=== PATIENT | female | born 1935 | race Caucasian/White ===

== ENCOUNTER → 2023-06-30 07:35 | Outpatient (REF) | payer MEDICARE, OTHER, SELFPAY ==
[2023-06-30 09:06] LABS: ALT (SGPT) 19 U/L (0-35); AST (SGOT) 28 U/L (14-36); Albumin 4.1 g/dl (3.5-5.0); Alkaline Phosphatase 148 U/L (38-126); Blood Urea Nitrogen 15 mg/dl (7-17); Calcium 9.9 mg/dl (8.4-10.2); Carbon Dioxide 26 mmol/L (22-30); Chloride 101 mmol/L (98-107); Glucose 119 mg/dl (70-99); HDL Cholesterol 54 mg/dl; LDL Cholesterol, Calculated 108 mg/dl; Potassium 4.3 mmol/L (3.5-5.1); Sodium 138 mmol/L (135-145); Total Bilirubin 0.9 mg/dl (0.2-1.3); Total Cholesterol 199 mg/dl (50-199); Total Protein 6.6 g/dl (6.3-8.2); Triglyceride 187 mg/dl (10-149); Very Low Density Lipoprotein 37 mg/dl (0-30); eGFR > 60.00
[2023-06-30 09:36] LABS: TSH Reflex To Free T4 7.39 uIU/ml (0.47-4.68)
[2023-06-30 10:05] LABS: Free T4 1.59 ng/dl (0.78-2.19)
[2023-06-30 11:06] LABS: Glycohemoglobin (HgbA1c) 6.5 % (4.0-5.6)
[2023-07-02 08:49] LABS: ANA, IgG Reflex to HEp-2 None Detected (None Detected)
[2023-07-03 16:46] LABS: Lyme Antibody Screen, EIA Negative (Negative); Rheumatoid Agglutinin Less Than 10 IU (<10 IU)
== END ==
LOC: REG 07:35
PROVIDERS: ATTENDING PHYSICIAN Family Medicine
DX: E78.00 Pure hypercholesterolemia, unspecified (principal); R73.03 Prediabetes; R52 Pain, unspecified; R79.82 Elevated C-reactive protein (CRP); R70.0 Elevated erythrocyte sedimentation rate
CPT/HCPCS: 36415; 80053; 80061; 83036; 84439; 84443; 86038; 86430; 86618

== ENCOUNTER → 2023-07-19 13:03 | Outpatient (REF) | payer MEDICARE, OTHER, SELFPAY | LOC: RAD 13:03 | PROVIDERS: ATTENDING PHYSICIAN Family Medicine | DX: M25.551 Pain in right hip (principal); M25.552 Pain in left hip | CPT/HCPCS: 73522 ==

== ENCOUNTER → 2023-08-03 08:04 | Outpatient (REF) | payer MEDICARE, OTHER, SELFPAY ==
[2023-08-03 09:03] LABS: Erythrocyte Sed Rate 8 mm/hour (0-20)
[2023-08-03 09:25] LABS: C-Reactive Protein < 5.00 mg/L (0.0-10.00)
== END ==
LOC: REG 08:04
PROVIDERS: ATTENDING PHYSICIAN Internal Medicine Rheumatology
DX: Z79.899 Other long term (current) drug therapy (principal); M35.3 Polymyalgia rheumatica; M15.0 Primary generalized (osteo)arthritis; M48.061 Spinal stenosis, lumbar region without neurogenic claudication; I48.91 Unspecified atrial fibrillation; E78.5 Hyperlipidemia, unspecified; R73.03 Prediabetes
CPT/HCPCS: 36415; 85652; 86140

== ENCOUNTER → 2023-08-31 10:26 | Outpatient (REF) | payer MEDICARE, OTHER, SELFPAY ==
[2023-08-31 12:15] LABS: Erythrocyte Sed Rate 21 mm/hour (0-20)
[2023-08-31 12:18] LABS: C-Reactive Protein < 5.00 mg/L (0.0-10.00)
== END ==
LOC: REG 10:26
PROVIDERS: ATTENDING PHYSICIAN Internal Medicine Rheumatology; FAMILY PHYSICIAN Family Medicine; REFERRING PHYSICIAN Psychiatry & Neurology Neurology
DX: M25.562 Pain in left knee (principal); M35.3 Polymyalgia rheumatica; M15.0 Primary generalized (osteo)arthritis; M48.061 Spinal stenosis, lumbar region without neurogenic claudication; Z79.899 Other long term (current) drug therapy
CPT/HCPCS: 36415; 73564; 85652; 86140

== ENCOUNTER → 2023-09-28 11:54 | Outpatient (REF) | payer MEDICARE, OTHER, SELFPAY ==
[2023-09-28 13:57] LABS: C-Reactive Protein < 5.00 mg/L (0.0-10.00)
[2023-09-28 14:22] LABS: Erythrocyte Sed Rate 41 mm/hour (0-20)
== END ==
LOC: REG 11:54
PROVIDERS: ATTENDING PHYSICIAN Internal Medicine Rheumatology
DX: M35.3 Polymyalgia rheumatica (principal); I48.91 Unspecified atrial fibrillation; Z79.899 Other long term (current) drug therapy; E78.5 Hyperlipidemia, unspecified; M48.061 Spinal stenosis, lumbar region without neurogenic claudication; R73.03 Prediabetes
CPT/HCPCS: 36415; 85652; 86140

== ENCOUNTER → 2023-10-25 13:08 | Outpatient (REF) | payer MEDICARE, OTHER, SELFPAY ==
[2023-10-25 13:53] LABS: Erythrocyte Sed Rate 24 mm/hour (0-20)
[2023-10-25 14:06] LABS: C-Reactive Protein < 5.00 mg/L (0.0-10.00)
== END ==
LOC: REG 13:08
PROVIDERS: ATTENDING PHYSICIAN Internal Medicine Rheumatology; FAMILY PHYSICIAN Family Medicine
DX: M35.3 Polymyalgia rheumatica (principal); M48.061 Spinal stenosis, lumbar region without neurogenic claudication; I48.91 Unspecified atrial fibrillation; E78.5 Hyperlipidemia, unspecified; R73.03 Prediabetes; Z79.899 Other long term (current) drug therapy
CPT/HCPCS: 36415; 85652; 86140

== ENCOUNTER → 2023-11-06 07:25 | Outpatient (REF) | payer MEDICARE, OTHER, SELFPAY | LOC: PAVMRI 07:25 | PROVIDERS: ATTENDING PHYSICIAN Psychiatry & Neurology Neurology; FAMILY PHYSICIAN Internal Medicine | DX: M54.50 Low back pain, unspecified (principal); M54.17 Radiculopathy, lumbosacral region | CPT/HCPCS: 72158; A9575 ==

== ENCOUNTER → 2023-11-22 10:38 | Outpatient (REF) | payer MEDICARE, OTHER, SELFPAY ==
[2023-11-22 12:50] LABS: C-Reactive Protein < 5.00 mg/L (0.0-10.00)
[2023-11-22 14:11] LABS: Erythrocyte Sed Rate 23 mm/hour (0-20)
== END ==
LOC: REG 10:38
PROVIDERS: ATTENDING PHYSICIAN Internal Medicine Rheumatology
DX: M35.3 Polymyalgia rheumatica (principal); M15.0 Primary generalized (osteo)arthritis; M48.061 Spinal stenosis, lumbar region without neurogenic claudication; R73.03 Prediabetes; E78.5 Hyperlipidemia, unspecified; I48.91 Unspecified atrial fibrillation; Z79.899 Other long term (current) drug therapy
CPT/HCPCS: 36415; 85652; 86140

== ENCOUNTER → 2023-12-07 07:17 | Outpatient (REF) | payer MEDICARE, OTHER, SELFPAY ==
[2023-12-07 09:36] LABS: ALT (SGPT) 13 U/L (0-35); AST (SGOT) 16 U/L (14-36); Alkaline Phosphatase 82 U/L (38-126); Blood Urea Nitrogen 25 mg/dl (7-17); Calcium 10.2 mg/dl (8.4-10.2); Carbon Dioxide 23 mmol/L (22-30); Chloride 104 mmol/L (98-107); Glucose 116 mg/dl (70-99); Potassium 4.2 mmol/L (3.5-5.1); Sodium 137 mmol/L (135-145); Total Bilirubin 0.7 mg/dl (0.2-1.3); Total Protein 6.2 g/dl (6.3-8.2); eGFR > 60.00
[2023-12-07 10:49] LABS: Glycohemoglobin (HgbA1c) 6.7 % (4.0-5.6)
[2023-12-07 11:32] LABS: Free T4 1.39 ng/dl (0.78-2.19)
[2023-12-07 11:46] LABS: TSH 3.69 uIU/ml (0.47-4.68)
[2023-12-07 15:08] LABS: Microalbumin, Random Urine 1.8 mg/dl (0.6-1.7)
== END ==
LOC: REG 07:17
PROVIDERS: ATTENDING PHYSICIAN Family Medicine
DX: E03.8 Other specified hypothyroidism (principal); E11.9 Type 2 diabetes mellitus without complications
CPT/HCPCS: 36415; 80053; 82043; 83036; 84439; 84443

== ENCOUNTER → 2024-01-25 13:05 | Outpatient (REF) | payer MEDICARE, OTHER, SELFPAY ==
[2024-01-25 15:48] LABS: C-Reactive Protein < 5.00 mg/L (0.0-10.00)
[2024-01-25 15:49] LABS: Erythrocyte Sed Rate 25 mm/hour (0-20)
== END ==
LOC: REG 13:05
PROVIDERS: ATTENDING PHYSICIAN Internal Medicine Rheumatology; FAMILY PHYSICIAN Family Medicine
DX: M35.3 Polymyalgia rheumatica (principal); M15.0 Primary generalized (osteo)arthritis; M48.061 Spinal stenosis, lumbar region without neurogenic claudication; I48.91 Unspecified atrial fibrillation; E78.5 Hyperlipidemia, unspecified; R73.03 Prediabetes; Z79.899 Other long term (current) drug therapy
CPT/HCPCS: 36415; 85652; 86140

== ENCOUNTER → 2024-03-21 09:15 | Outpatient (REF) | payer MEDICARE, OTHER, SELFPAY | LOC: RCS 09:15 | PROVIDERS: ATTENDING PHYSICIAN Internal Medicine Cardiovascular Disease; FAMILY PHYSICIAN Family Medicine | DX: I35.0 Nonrheumatic aortic (valve) stenosis (principal) | CPT/HCPCS: 93306 ==

== ENCOUNTER → 2024-04-25 07:39 | Outpatient (REF) | payer MEDICARE, OTHER, SELFPAY ==
[2024-04-25 09:51] LABS: C-Reactive Protein < 5.00 mg/L (0.0-10.00)
[2024-04-25 09:57] LABS: Erythrocyte Sed Rate 26 mm/hour (0-20)
== END ==
LOC: REG 07:39
PROVIDERS: ATTENDING PHYSICIAN Internal Medicine Rheumatology; FAMILY PHYSICIAN Family Medicine
DX: M35.3 Polymyalgia rheumatica (principal); M15.0 Primary generalized (osteo)arthritis; M48.061 Spinal stenosis, lumbar region without neurogenic claudication; R73.03 Prediabetes; E78.5 Hyperlipidemia, unspecified; I48.91 Unspecified atrial fibrillation; Z79.899 Other long term (current) drug therapy
CPT/HCPCS: 36415; 85652; 86140

== ENCOUNTER → 2024-06-26 07:46 | Outpatient (REF) | payer MEDICARE, OTHER, SELFPAY ==
[2024-06-26 09:40] LABS: Glycohemoglobin (HgbA1c) 6.3 % (4.0-5.6)
[2024-06-26 09:57] LABS: ALT (SGPT) 10 U/L (0-35); AST (SGOT) 15 U/L (14-36); Albumin 4.1 g/dl (3.5-5.0); Alkaline Phosphatase 106 U/L (38-126); Blood Urea Nitrogen 16 mg/dl (7-17); Calcium 10.1 mg/dl (8.4-10.2); Carbon Dioxide 26 mmol/L (22-30); Chloride 100 mmol/L (98-107); Glucose 103 mg/dl (70-99); HDL Cholesterol 48 mg/dl; LDL Cholesterol, Calculated 92 mg/dl; Potassium 4.6 mmol/L (3.5-5.1); Sodium 139 mmol/L (135-145); Total Bilirubin 0.9 mg/dl (0.2-1.3); Total Cholesterol 158 mg/dl (50-199); Total Protein 6.2 g/dl (6.3-8.2); Triglyceride 92 mg/dl (10-149); Very Low Density Lipoprotein 18 mg/dl (0-30); eGFR > 60.00
[2024-06-26 10:20] LABS: TSH Reflex To Free T4 4.66 uIU/ml (0.47-4.68)
== END ==
LOC: REG 07:46
PROVIDERS: ATTENDING PHYSICIAN Family Medicine
DX: E11.9 Type 2 diabetes mellitus without complications (principal); E78.00 Pure hypercholesterolemia, unspecified; E03.8 Other specified hypothyroidism
CPT/HCPCS: 36415; 80053; 80061; 83036; 84443

== ENCOUNTER → 2024-08-01 12:40 | Outpatient (REF) | payer MEDICARE, OTHER, SELFPAY ==
[2024-08-01 13:46] LABS: Erythrocyte Sed Rate 7 mm/hour (0-20)
[2024-08-01 14:13] LABS: C-Reactive Protein < 5.00 mg/L (0.0-10.00)
== END ==
LOC: REG 12:40
PROVIDERS: ATTENDING PHYSICIAN Internal Medicine Rheumatology; FAMILY PHYSICIAN Family Medicine
DX: M35.3 Polymyalgia rheumatica (principal); M15.0 Primary generalized (osteo)arthritis; M48.061 Spinal stenosis, lumbar region without neurogenic claudication; I48.91 Unspecified atrial fibrillation; E78.5 Hyperlipidemia, unspecified; R73.03 Prediabetes; Z79.899 Other long term (current) drug therapy
CPT/HCPCS: 36415; 85652; 86140

== ENCOUNTER → 2025-05-02 12:23 | Outpatient (REF) | payer MEDICARE, OTHER, SELFPAY | LOC: PAVMRI 12:23 | PROVIDERS: ATTENDING PHYSICIAN Physician Assistant Surgical; FAMILY PHYSICIAN Family Medicine | DX: M54.16 Radiculopathy, lumbar region (principal) | CPT/HCPCS: 72158; A9575 ==